=== PATIENT | male | born 1935 | race Caucasian/White ===

== ENCOUNTER 2019-06-10 08:51 | Outpatient (CLI) | payer MEDICARE, OTHER | END 2019-06-10 08:52 | disposition EMS.NT | LOC: EMS 08:51 | PROVIDERS: ATTEND Surgery | DX: R53.1 Weakness (principal) ==

== ENCOUNTER 2019-06-10 10:09 | Emergency (ER) | payer MEDICARE, OTHER ==
--- NOTE | 2019-06-10 10:56 | ED Physician Documentation ---
History of Present Illness - Stated complaint Stated Complaint: WEAKNESS - Chief complaint Chief Complaint: Neuro - History obtained from History obtained from: Patient (mostly non-verbal 2/2 dementia), Family - History of Present Illness Timing: Today Pain level max: 0 Pain level now: 0 - Additonal information Additional information: states that he appeared pale and weak. He had difficulty standing without his knees buckling. There were no focal neurological deficits. He was able to walk with her assistance from the bathroom to the bed where he laid down. EMS came and evaluated the patient. He was feeling better, so she brought him in for evaluation. She states he has had no fevers. No vomiting. No diarrhea. No constipation. Review of Systems Unable to obtain: Dementia Ten Systems: 10 systems reviewed and negative Constitutional: denies: Fever Nose: denies: Rhinorrhea / runny nose, Congestion Cardiac: denies: Chest pain / pressure Respiratory: denies: Cough GI: denies: Vomiting Skin: denies: Rash Musculoskeletal: denies: Neck pain, Back pain Neurologic: denies: Headache PD PAST MEDICAL HISTORY - Past Medical History Cardiovascular: Hypertension, High cholesterol Respiratory: None Neuro: Dementia Endocrine/Autoimmune: Type 2 diabetes GI: None : None HEENT: None Psych: None Musculoskeletal: Osteoarthritis Derm: None - Past Surgical History Past Surgical History: Yes HEENT: Cataracts - Present Medications Home Medications: Ambulatory Orders Medication Instructions Recorded Confirmed Lisinopril/Hydrochlorothiazide 1 mg PO DAILY 03/09/15 03/10/15 [Lisinopril-Hctz 20-12.5 mg Tab] Propranolol HCl 20 mg PO DAILY 03/09/15 03/10/15 Simvastatin 20 mg PO DAILY 03/09/15 03/10/15 metFORMIN [Glucophage] 500 mg PO DAILY 03/09/15 03/10/15 HYDROcod/ACETAM 5/325 [Anderson 5/325] 1 - 2 ea PO Q6H PRN #20 tablet 06/25/15 Cephalexin [Keflex] 500 mg PO Q6H #28 capsule 06/10/19 - Allergies Allergies/Adverse Reactions: Allergies Allergy/AdvReac Type Severity Reaction Status Date / Time No Known Drug Allergies Allergy Verified 03/10/15 06:32 - Social History Does the pt smoke?: Yes Smoking Status: Current every day smoker Does the pt drink ETOH?: No Does the pt have substance abuse?: No - Immunizations Immunizations are current?: Yes - POLST Patient has POLST: No PD ED PE NORMAL - Vitals Vital signs reviewed: Yes - General General: Alert and oriented X 3, No acute distress - HEENT HEENT: Moist mucous membranes - Neck Neck: Supple, no meningeal sign - Cardiac Cardiac: RRR, Strong equal pulses - Respiratory Respiratory: No respiratory distress, Clear bilaterally - Abdomen Abdomen: Soft, Non tender, Non distended - Derm Derm: Warm and dry - Neuro Neuro: Alert and oriented X 3, reverse unit operator 2-12 intact, No motor deficit, No sensory deficit, Normal speech Eye Opening: Spontaneous Motor: Obeys Commands Verbal: Oriented GCS Score: 15 - Psych Psych: Normal mood, Normal affect Results - Vitals Vitals: Oxygen O2 Source Room air - EKG (time done) 1114 Rate: Rate (enter#) (57) Rhythm: NSR Furlong: Normal Intervals: 1st degree AVB QRS: Normal Ischemia: Normal ST segments - Labs Labs: Laboratory Tests 06/10/19 06/10/19 06/10/19 10:41 10:41 10:41 WBC 6.5 RBC 3.77 L Hgb 12.4 L Hct 36.6 L MCV 97.1 H MCH 32.9 H MCHC 33.9 RDW 13.6 Plt Count 199 MPV 11.3 Neut # (Auto) 5.2 Lymph # (Auto) 0.9 L Mcintosh # (Auto) 0.4 Eos # (Auto) 0.0 Baso # (Auto) 0.0 Absolute Nucleated RBC 0.00 Nucleated RBC % 0.0 Sodium 139 Potassium 3.9 Chloride 104 Carbon Dioxide 27 Anion Gap 8.0 BUN 40 H Creatinine 1.1 Estimated GFR (MDRD) 64 L Glucose 158 H Calcium 9.1 Total Bilirubin 0.7 AST 14 ALT 15 Alkaline Phosphatase 50 Troponin I High Sens 6.3 Total Protein 7.4 Albumin 3.9 Globulin 3.5 Albumin/Globulin Ratio 1.1 Lipase 39 Urine Color Urine Clarity Urine pH Ur Specific [place] Urine Protein Urine Glucose (UA) Urine Ketones Urine Occult Blood Urine Nitrite Urine Bilirubin Urine Urobilinogen Ur Leukocyte Esterase Urine RBC Urine WBC Ur Squamous Epith Cells Urine Bacteria Ur Microscopic Review Urine Culture Comments 06/10/19 11:48 WBC RBC Hgb Hct MCV MCH MCHC RDW Plt Count MPV Neut # (Auto) Lymph # (Auto) Mcintosh # (Auto) Eos # (Auto) Baso # (Auto) Absolute Nucleated RBC Nucleated RBC % Sodium Potassium Chloride Carbon Dioxide Anion Gap BUN Creatinine Estimated GFR (MDRD) Glucose Calcium Total Bilirubin AST ALT Alkaline Phosphatase Troponin I High Sens Total Protein Albumin Globulin Albumin/Globulin Ratio Lipase Urine Color YELLOW Urine Clarity HAZY Urine pH 5.5 Ur Specific [place] 1.020 Urine Protein TRACE Urine Glucose (UA) NEGATIVE Urine Ketones NEGATIVE Urine Occult Blood MODERATE H Urine Nitrite NEGATIVE Urine Bilirubin NEGATIVE Urine Urobilinogen 0.2 (NORMAL) Ur Leukocyte Esterase NEGATIVE Urine RBC 11-25 H Urine WBC 4-5 Ur Squamous Epith Cells NONE SEEN Urine Bacteria Few Ur Microscopic Review INDICATED Urine Culture Comments NOT INDICATED - Rads (name of study) head CT Radiology: Prelim report reviewed, EMP read contemporaneously, See rad report (IMPRESSION: Normal for age. ) PD MEDICAL DECISION MAKING - ED course Complexity details: reviewed results, re-evaluated patient, considered differential, d/w patient, d/w family ED course: Patient presents to the emergency department what sounds like dehydration and possible near vasovagal syncope today. No focal neurological deficits. No evidence of stroke or TIA. He is at his normal baseline currently. Feels better after IV fluids. He is well-appearing, nontoxic. Afebrile. No chest pain. Patient and family counseled regarding signs and symptoms for which I believe and urgent re-evaluation would be necessary. Patient with good understanding of and agreement to plan and is comfortable going home at this [facility] This document was made in part using voice recognition software. While efforts are made to proofread this document, sound alike and grammatical errors may occur. We will treat for UTI as well Departure - Departure Disposition: 01 Home, Self Care Clinical Impression: Dehydration UTI (urinary tract infection) Qualifiers: Urinary tract infection type: acute cystitis Hematuria presence: without hematuria Qualified Code(s): N30.00 - Acute cystitis without hematuria Condition: Good Instructions: ED Dehydration, ED UTI Cystitis Male Follow-Up: Pavel Kearney MD [Primary Care Provider] - Within 1 week Prescriptions: Cephalexin [Keflex] 500 mg PO Q6H #28 capsule Comments: Drink plenty of fluid at home. Take all antibiotics until gone. Return if you worsen. Discharge Date/Time: 06/10/19 13:23 NIHSS - Time Time: 10:50 - Level of Consciousness Level of consciousness: (0) Alert, Keenly responsive LOC Questions: (2) Answers neither correct (dementia) LOC Commands: (0) Performs both correctly - Gaze Best Gaze: (0) Normal - Visual Visual: (0) No loss - Facial Palsy Facial Palsy: (0) Normal, symmetrical movement - Motor Arms (both separate) Motor Arm (right): (0) No drift Motor Arm (left): (0) No drift - Motor Legs (both separate) Motor Leg (right): (0) No drift Motor Leg (left): (0) No drift - Limb Ataxia Limb Ataxia: (0) Absent - Sensory Sensory: (0) Normal - Best Language Best Language: (0) No aphasia - Dysarthria Dysarthria: (0) Normal - Extinction and Inattention (formally neg Extinction and inattention: (0) No abnormality - Total Score/Results Total Score/Result: 2
[2019-06-10 11:02] LABS: BASOPHILS % (AUTO) 0.5 %; EOSINOPHILS % (AUTO) 0.6 %; HGB - HEMOGLOBIN 12.4 g/dL (14.0-18.0); LYMPHOCYTES # (AUTO) 0.9 10^3/uL (1.5-3.5); LYMPHOCYTES % (AUTO) 13.3 %; MEAN CORPUSCULAR HEMOGLOBIN 32.9 pg (27.0-31.0); MEAN CORPUSCULAR HGB CONC 33.9 g/dL (32.0-36.0); MEAN CORPUSCULAR VOLUME 97.1 fL (80.0-94.0); MEAN PLATELET VOLUME 11.3 fL (7.4-11.4); MONOCYTES # (AUTO) 0.4 10^3/uL (0.0-1.0); MONOCYTES % (AUTO) 5.4 %; NEUTROPHILS # (AUTO) 5.2 10^3/uL (1.5-6.6); NEUTROPHILS % (AUTO) 79.9 %; PLT - PLATELET COUNT 199 10^3/uL (130-450); RED BLOOD COUNT 3.77 10^6/uL (4.70-6.10); RED CELL DISTRIBUTION WIDTH 13.6 % (12.0-15.0); WHITE BLOOD COUNT 6.5 x10^3/uL (4.8-10.8)
[2019-06-10 11:13] LABS: ALBUMIN 3.9 g/dL (3.2-5.5); ALBUMIN/GLOBULIN RATIO 1.1 (1.0-2.2); BILIRUBIN,TOTAL 0.7 mg/dL (0.2-1.0); CALCIUM 9.1 mg/dL (8.5-10.3); CREATININE 1.1 mg/dL (0.6-1.2); TOTAL PROTEIN 7.4 g/dL (6.7-8.2)
[2019-06-10] MEDS ORDERED: SODIUM CHLORIDE 0.9% 1,000 ML IV ONE (11:46)
[2019-06-10 12:04] LABS: BILIRUBIN,URINE NEGATIVE (NEGATIVE); GLUCOSE, URINE (UA) NEGATIVE (NEGATIVE); KETONES,URINE (UA) NEGATIVE (NEGATIVE); LEUKOCYTE ESTERASE, URINE NEGATIVE (NEGATIVE); NITRITE,URINE NEGATIVE (NEGATIVE); OCCULT BLOOD,URINE MODERATE (NEGATIVE); PH,URINE 5.5 PH (5.0-7.5); PROTEIN,URINE TRACE mg/dL (NEGATIVE); UROBILINOGEN,URINE 0.2 (NORMAL) E.U./dL (NORMAL)
[2019-06-10 12:06] LABS: CLARITY,URINE HAZY (CLEAR)
[2019-06-10 12:16] LABS: BACTERIA,URINE Few /HPF (None Seen); SQUAMOUS EPITHELIAL CELL,UR NONE SEEN (<= Few)
--- NOTE | 2019-06-10 12:20 | CT Report ---
Reason: weakness Procedure Date: 06/10/2019 Accession Number: [id number] / [id number] Procedure: CT - HEAD WO CPT Code: Final Report FULL RESULT: EXAM: CT HEAD WITHOUT IV CONTRAST EXAM DATE: 06/10/2019. CLINICAL HISTORY: Weakness. Confusion. COMPARISON: MRI done 12/20/2015. TECHNIQUE: Multiaxial CT images were obtained from the foramen magnum to the vertex. Reformats: Sagittal and coronal. IV contrast: None. In accordance with CT protocol optimization, one or more of the following dose reduction techniques were utilized for this exam: automated exposure control, adjustment of mA and/or KV based on patient size, or use of iterative reconstructive technique. FINDINGS: Parenchyma: The ventricles and sulci are enlarged, within the broad range of normal for the age group. Decreased attenuation of the cerebral white matter is consistent with small vessel ischemic changes, common At this age. No intraparenchymal hemorrhage. No evidence of mass, midline shift, or CT findings of infarction. Everett-white differentiation is distinct. Extraaxial Spaces: No hemorrhage or mass demonstrated. Sinuses: The included sinuses are clear. Mastoids are normally aerated. Bones: No evidence of fracture or calvarial defect. Soft Tissues: Normal. IMPRESSION: Normal for age. RADIA
[2019-06-10 13:13] VITALS: BP 136/68
== END 2019-06-10 13:23 | disposition home or self-care (01) ==
LOC: ED 10:09
DX: E86.0 Dehydration (principal); N30.00 Acute cystitis without hematuria; I44.0 Atrioventricular block, first degree; I10 Essential (primary) hypertension; E11.9 Type 2 diabetes mellitus without complications; Z79.84 Long term (current) use of oral hypoglycemic drugs; F03.90 Unspecified dementia, unspecified severity, without behavioral disturbance, psychotic disturbance, mood disturbance, and anxiety; F17.200 Nicotine dependence, unspecified, uncomplicated
CPT/HCPCS: 36415; 51701; 70450; 80053; 81001; 81003; 83690; 84484; 85025; 87086; 93005; 96360; 99283

== ENCOUNTER 2019-07-30 11:00 | Outpatient (CLI) | payer MEDICARE, OTHER ==
--- NOTE | 2019-07-30 17:38 | CONSULTATION NOTE ---
Palliative Care Consultation - Referral Referring Provider: Dr. Pavel Kearney Time of Visit: [id number] Referral setting: Home Referral Reason: Lewy Body Dementia - Information Sources Records reviewed: Previous records reviewed History/Review of Systems obtained from: Family (, Angélica) Exam limitations: Clinical condition (poor historian due to dementia and is mostly nonverbal) - History of Present Illness Brief History of Present Illness: This is a 83-year-old male who presents today in his home with his spouse, Angélica present, and MARILU Abel for initial palliative care consultation due to patient's progressive Lewy body dementia. Patient was diagnosed with Lewy body dementia at approximately age 78. He has been followed by Dr. Hopkins, at the [facility], and his medications related to his dementia were stopped by the neurologist as this was not providing any benefit. The medications were stopped in approximately April 2019. His reports that she did not notice any change in his cognition with, and then without, the medication. Earlier in the patient's disease course he did have visual hallucinations but does not any longer. His , Angélica, reports that since February of last year she is noted more changes in regards to the patient's progressive dementia. He has not had any weight los s that she can report since the summer. He continues to eat well. He did have a loss of weight from August to December 2018. He is requiring assistance during meals with prompting and will also take him quite some time to complete a meal. The latest symptoms that she has encountered is that he is sleeping more throughout the day. Once though patient's has prepared him for bed, he will stay in bed for the night. An additional troubling concern for her is his urinary incontinence. He had a syncopal episode in May 2019 and was transported and EMS was called and the patient was taken to the [facility] emergency department where he was diagnosed with dehydration and a urinary tract infection. His reports that at times his urine will have a foul odor to it. She attempts to to prompt him to drink fluids such as water and cranberry juice throughout the day. She denies any recent fever or change in urinary pattern. He is still able to ambulate independently without any assistive device. He will walk up and down the stairs to their bedroom typically, without incident. Per the there are approximately 16 steps. He has had 2 falls in the last 12 months without reported injury. Medical/Surgical History - Past Medical History Cardiovascular: reports: Hypertension, High cholesterol Respiratory: reports: None Neuro: Dementia (Lewy Body Dementia) Endocrine/Autoimmune: reports: Type 2 diabetes GI: reports: None : reports: None HEENT: reports: None Psych: reports: None Derm: reports: None MRSA Hx?: No Other Past Medical History: Macular Degeneration; Actinic Keratosis to left nare - Past Surgical History HEENT: reports: Cataracts - Substance History Use: Uses substance without health or social issues: Other (Previous hisory of tobacco use with cigarrettes and cigars) Social History - Living Situation Living arrangement: At home Living Situation: With spouse/s.o. ( Angélica who is his long term care administrator) Support System: The patient was previously and has 1 daughter from that relationship. He has been to his current , Angélica, for 30 years. Angélica has daughters from her previous marriage. 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 When he became aware that his cognition was starting to decline he retired at age 79. There is no family that lives locally. Geraldine is his primary caregiver. He has a director of intercollegiate athletics, Brenden, who takes him out on Tuesdays and for approximately 3 to 4 hours for socialization and to attend the coffee shop. Prior to his decline due to his Lewy body dementia, he was very active in his community. His recalls him as being "life of the republican" and was president of the men's club. He was also an avid golfer. They do have a neighbor, Tiffanie, who comes to assist Angélica when she goes to her [employer] class or has to run errands such as grocery shopping in town. Family History - Family History Family History: Mother: , Father: , Sister: Alive and Well Family History Comment/Other: No family history of dementia. Medications/Allergies - Medications Home Medications: Ambulatory Orders Medication Instructions Recorded Confirmed Propranolol HCl 20 mg PO DAILY 03/09/15 07/30/19 metFORMIN [Glucophage] 500 mg PO DAILY 03/09/15 07/30/19 - Allergies Allergies/Adverse Reactions: Allergies Allergy/AdvReac Type Severity Reaction Status Date / Time No Known Drug Allergies Allergy Verified 07/30/19 18:07 Review of Systems - Constitutional Constitutional: reports: Weight loss (weight loss from Aug to December 2018). denies: Fever, Chills - Eyes Eyes: reports: Other (+macular degeneration and recieves injections routinely) - Ears, Nose & Throat Ears, Nose & Throat: reports: Nasal discharge (recent nasal discharge that resolved with the use of D-HIST supplement daily) - Cardiovascular Cardiovascular: reports: Syncope (syncopal epsisode May 2019 with dx of dehydration and UTI). denies: Edema - Respiratory Respiratory: denies: Cough, Wheezing, SOB at rest - Gastrointestinal Gastrointestinal: denies: Abdominal distention, Constipation, Nausea, Vomiting, Poor appetite - Genitourinary Genitourinary: reports: Incontinence, Other (strong odor to urine) - Musculoskeletal Musculoskeletal: denies: Joint swelling, Assistive devices - Integumentary Integumentary: reports: Other (lesion noted to right scalp) - Neurological Neurological: reports: Memory problems (Lewy Body Dementia) - Psychiatric Psychiatric: denies: Behavior disturbances - Endocrine Endocrine: reports: Diabetes type 2 - Hematologic/Lymphatic Hematologic/Lymphatic: denies: Bruising - All Other Systems All Other Systems: reports: Reviewed and negative - Other Findings Other Findings: ROS obtained from spouse, Angélica, as patient is a poor historian and mostly non- verbal due to dementia Physical Exam - Vital Signs Temperature: 36.2 C (temporal) Pulse Rate: 86 O2 Saturation: 95 (on RA) Blood Pressure: 108/62 - Physical Exam General Appearance: positive: No acute distress (Seen in his kitchen and during initial period of the visit was dozing in his chair in the kitchen. Well groomed. Made eye contact.) Eyes Bilateral: positive: Normal inspection ENT: positive: Other (MMM) Neck: positive: Trachea midline, Other (no LAD) Cardiovascular: positive: Regular rate & rhythm, No murmur. negative: Decreased pulse(s) Respiratory: positive: No respiratory distress, Breath sounds nml. negative: Wheezes, Rhonchi Abdomen: positive: Non-tender, Soft, Nml bowel sounds. negative: Tenderness, Distended Skin: positive: Other (Light brown patch to right mosque along scalp without evidence of skin breakdown or irritation) Extremities: positive: Full ROM, Other (MAC circumference RUE 27.5cm). negative: No pedal edema Neurologic/Psychiatric: positive: Disoriented to person, Disoriented to place, Disoriented to time, Other (smiles easily and answers with one to two words responses to questions; pleasantly confused) Palliative Care - POLST Patient has POLST: Yes POLST Status: Selective Treatment, Full Code Pain: No pain Drowsiness/Sedation: Moderate (4-6) Nausea: None Anorexia: None Dyspnea: None Depression: None Sleep: Sleeps well ( reports that she sometimes have difficulty undressing the patient in the evenings a he wishes to hold onto his clothes) Constipation: No Performance Status: Patient was previously very active in his job as well as his community. Since his diagnosis of Lewy body dementia he has had a progressive decline with an steady increase in his functional decline since the summer. He requires complete assistance with dressing and bathing. Formally, he would allow his to bathe him in the shower. Now he no longer wishes to enter the shower and she is bathing him with rinse less wipes. He is completely incontinent of bowel and bladder and his has been providing perineum care without any evidence of skin breakdown. He continues to have a good appetite, however, he requires prompting when he feeds himself and of late is being fed. He continues to ambulate without an assistive device however he has had 2 falls without injury in the last 12 months. PPS score 40% - Palliative Care Discussion: Discussion of goals of care was held with his /DPOA, Angélica. We discussed the disease trajectory with Lewy Body Dementia and that the patient's dementia has progressed to a severe state that he is requiring assistance with all his ADLs. Angélica is able to provide all his needs as his caregiver presently, but recognizes that the time to require assistance in the home is approaching due to overall decline in functional status that has been increasingly progressive in the last few months. At this time, Angélica does not present with caregiver fatigue as she is able to attend pilates several times a week and her neighbor, Tiffanie will attend to the patient while she is away from the home. There is also, Brenden, who takes the patient out twice a week for 3-4 hours for coffee and social interation outside of the home. Angélica is in contact with the patient's daughter as well as her own daughters who provide emotional support. Her father was on hospice services and she cared for both her mother and father prior to their deaths. The present POLST was reviewed and the patient was elected as a Full Code with selective treatment. Upon further review of goals of care, Angélica wishes to focus on comfort and quality of life for her within their home without comfort measures with a transition to hospice when appropriate. Hospice services where reviewed with the patient's /DPOA. Impression and Recommendations - Palliative Care Impression: This is an 83-year-old man who presents with advanced Lewy body dementia with increasingly progressive functional decline. Patient would benefit from continued palliative support for symptom management, anticipatory guidance, and transition to hospice when appropriate. Recommendations/Counseling Done: 1. Lewy Body Dementia. Advanced. PPS score 40% and dependent on all ADLs with incontinence of bowel and bladder. Progressive functional decline. Reviewed trajectory of disease course with /DPOA with questions answered and addressed. Has been followed by Dr. Hopkins at [facility] for neurology services. As his previous medications for his condition were discontinued due to ineffectiveness would not continue with appointments given the patient's functional decline as this would be taxing not only to him but also to his . His is in agreement. No evidence of aspiration per report. Fall precautions. Anticipatory guidance provided as well as provided a list of caregiving agencies on [facility] for the /DPOA to contact to assist with caregiving needs within the home. 2. Hypertension. Two recent episodes of syncope per 's report in context of concentrated urine and decreased fluid intake secondary to dementia. Presently on Lisinopril/HCTZ and propanol. Given he has no peripheral edema and limited fluid intake, discussed with /DPOA discontinuing lisinopril/HCTZ and in agreement. Continue propanol as ordered. No reported cardiac awareness. Continue to monitor and adjust antihypertensive medication regimen as necessary. 3. History of UTI. Presently afebrile and without any s/s of infection. Encouraged frequent oral hydration throughout the day. 4.Macular degeneration. Followed by Dr. Timmons for monthly injections. As the patient has limited vision, reviewed benefits vs burdens regarding continuation of these injections with his /DPOA. At the present time, we will continue the injections as it affords the patient to maintain his present eyesight for quality of life purposes. 5. Advanced care planning. Goals of care reviewed with /DPOA, Angélica who wishes to focus on comfort and quality of life with a transition to hospice when appropriate. Reviewed POLST and updated to reflect goals of care as DNR and comfort measures. Counseling provided to regarding palliative versus hospice care and the expected transition points in the patient's disease trajectory that would lead to a hospice referral with questions answered and addressed. Time Spent: Total time spent 75 minutes with greater than 50% of time spent in counseling family and patient regarding escalation vs de-escalation of care, palliative/hospice philosophy as well as care coordination, caregiver support, disease trajectory for advanced Lewy Body Dementia and anticipatory guidance. Follow-up in 3 weeks or sooner if new/worsening symptoms. Disclaimer: The chart note was formulated using voice recognition technology and unfortunately sounds like errors are possible.
== END 2019-07-30 11:01 | disposition home or self-care (01) ==
LOC: PC 11:00
PROVIDERS: ATTEND Nurse Practitioner Family
DX: Z51.5 Encounter for palliative care (principal); G31.83 Neurocognitive disorder with Lewy bodies; F02.80 Dementia in other diseases classified elsewhere, unspecified severity, without behavioral disturbance, psychotic disturbance, mood disturbance, and anxiety; I10 Essential (primary) hypertension; H35.30 Unspecified macular degeneration; Z79.899 Other long term (current) drug therapy; Z87.440 Personal history of urinary (tract) infections
CPT/HCPCS: 99345

== ENCOUNTER 2019-08-21 12:30 | Outpatient (CLI) | payer MEDICARE, OTHER ==
--- NOTE | 2019-08-21 16:53 | CONSULTATION NOTE ---
Palliative Care Follow Up - Referral Referring Provider: Dr. Pavel Kearney Time of Visit: [id number] Referral setting: Home Referral Reason: Lewy Body Dementia - Information Sources Records reviewed: Previous records reviewed History/Review of Systems obtained from: Family (spouse and caregiver, Angélica) Exam limitations: Clinical condition (Minimally verbal and not contributory) - History of Present Illness Update Brief HPI Update: This is an 83-year-old man who is seen in the presence of his spouse, Kim, for follow-up due to progressive Lewy body dementia. He was first diagnosed with Lewy body dementia at approximately age 78. He had been followed by Dr. Chowdhury, at the [facility], and his medications related to his dementia were stopped by the neurologist as there was no noted benefit. These medications were stopped in approximately April 2019. He presently has had more of a gradual decline since his last evaluation 3 weeks ago. His , Angélica and sole caregiver reports that "every day is different." In the last several weeks she has noticed that he appears to have lost more weight although no weight has been able to be obtained. He has lost the ability to adequately follow commands when addressed. He remains minimally verbal. During the day he will chew on playing cards and will move objects that have been left on the table and pick them up. He continues to go out approximately twice a week with a male substation operator apprentice, Brenden, who takes him out for socialization and to attend a coffee shop. He has also lost some interest in food but continues to eat most of his meals but it may take up to 1 hour at a time for completing it. He typically stays at the kitchen table most of the day drifting in and out of sleep. He typically will get approximately 10 to 12 hours of sleep during the night. He does not get up during the night. His is also noticed some decrease in balance with a recent fall into a chair with no noted injury. Otherwise he is still able to ambulate independently without an assistive device. He also remains able to walk up and down the stairs to their shared bedroom, typically without incident. On his last evaluation on July 30, 2019 the patient's lisinopril/HCTZ was discontinued due to decreased oral intake as well as reported episodes of syncope. He has had no further episodes of syncope after this discontinuation. The reports that they went to the manufacturer representative 1 Sunday for injections regarding his macular degeneration. However the patient was unable to follow commands and moving forward they are no longer going to have any intraocular injections. During that visit it was reported to the that his systolic blood pressure was approximately 75. Social History - Living Situation Living arrangement: At home Living Situation: With spouse/s.o. Support System: The patient remains to be cared for by his , Angélica. They have been for approximately 30 years. The patient has a daughter, Nayely, from his previous marriage. The daughter, granddaughters, visited recently and they enjoyed their visit. They next plan on visiting while the granddaughters are on spring break. Angélica continues to attend Pilates class routinely to maintain her core strength. She continues to to maintain her ability to care for the patient independently. She is aware that she will eventually need increased assistance. While Angélica attends Pilates class or has to run errands, there is a neighbor, Tiffanie who was able to remain with the patient so he is not alone. Medications/Allergies - Medications Home Medications: Ambulatory Orders Medication Instructions Recorded Confirmed Propranolol HCl 20 mg PO DAILY 03/09/15 07/30/19 metFORMIN [Glucophage] 500 mg PO DAILY 03/09/15 07/30/19 Dhist 2 cap PO DAILY 08/21/19 - Allergies Allergies/Adverse Reactions: Allergies Allergy/AdvReac Type Severity Reaction Status Date / Time No Known Drug Allergies Allergy Verified 07/30/19 18:07 Review of Systems - Constitutional Constitutional: reports: Fatigue, Weakness, Weight loss (RUE MAC circumference 27.5cm on 07/30/2019). denies: Fever - Eyes Eyes: reports: Vision loss (secondary to macular degeneration) - Ears, Nose & Throat Ears, Nose & Throat: denies: Nasal discharge - Cardiovascular Cardiovascular: denies: Chest pain, Edema, Syncope - Respiratory Respiratory: denies: Cough, Wheezing - Gastrointestinal Gastrointestinal: reports: Other (+incontinent of stool). denies: Abdominal pain, Constipation (typically will have appx 2-3 bowel movements every other day), Diarrhea, Vomiting - Genitourinary Genitourinary: reports: Incontinence - Musculoskeletal Musculoskeletal: reports: Muscle weakness. denies: Joint pain, Joint swelling, Assistive devices - Integumentary Integumentary: reports: Other (lesion to right confucianism along scalp has resolved) - Neurological Neurological: reports: General weakness, Memory problems - Psychiatric Psychiatric: denies: Behavior disturbances - Endocrine Endocrine: reports: Diabetes type 2 - Hematologic/Lymphatic Hematologic/Lymphatic: reports: Bruising - All Other Systems All Other Systems: reports: Other (ROS obtained from spouse, Angélica as patient is a poor historian due to dementia and is mostly nonverbal.) Physical Exam - Vital Signs Temperature: 36.2 C Pulse Rate: 70 O2 Saturation: 98 (on RA) Blood Pressure: 130/60 (right wrist cuff) - Physical Exam General Appearance: positive: No acute distress, Other (sleeping in chair in living room, arousable and made good eye contact, well groomed.) Eyes Bilateral: positive: Normal inspection ENT: positive: Other (+MMM) Neck: positive: No JVD, Trachea midline Cardiovascular: positive: Regular rate & rhythm, No murmur, No gallop. negative: Decreased pulse(s) Respiratory: positive: No respiratory distress, Breath sounds nml. negative: Rhonchi Abdomen: positive: Non-tender, Soft, Nml bowel sounds. negative: Distended Skin: positive: Bruising (noted to bilateral hands) Extremities: positive: Non-tender, No pedal edema, Other (MAC RUE circumference 27cm) Neurologic/Psychiatric: positive: Disoriented to person, Disoriented to place, Disoriented to time, Weakness, Other (Only will speak 3 words (sure, yes, bye) and will whistle. Is unable to follow commands when requested to raise legs or squeeze examiner's hands) Palliative Care - POLST Patient has POLST: Yes POLST Status: DNR, Comfort Measures Pain: No pain Tiredness/Fatigue: Moderate (4-6) (dozes on and off throughout the day) Sleep: Sleeps well Constipation: No Performance Status: Patient continues to have a physical and cognitive decline related to his Lewy body dementia. He continues to have a loss of functional decline more specifically of late regular in regards to his inability to follow commands. He requires complete assistance with hygiene. He is incontinent of bowel and bladder. He continues to have a good appetite but it can take approximately 1 hour for him to consume a meal. No noted coughing or choking when eating. He continues to ambulate without an assistive device, however, his has noticed some increased and loss of his balance. FAST 7B - Palliative Care Discussion: Patient is dozing off more frequently during the day, has had noted weight loss in regards to his MAC score to his right upper extremity from 27.5cm to 27 cm in the span of approximately 3 weeks. His can tell that he continues to have a functional decline however he does not appear to be uncomfortable. His wishes to focus on comfort and quality of life and for the patient to remain in their home with a transition to hospice when appropriate. Impression and Recommendations - Palliative Care Impression: This is an 83-year-old man who presents with advanced Lewy body dementia with an increasingly progressive functional decline.Patient would continue to benefit from palliative support for symptom management, anticipatory guidance, and transition to hospice when appropriate. Recommendations/Counseling Done: 1. Lewy Body Dementia. Advance. Chronic. Progressive. Fast 7B. Patient remains dependent on all ADLs with incontinence of bowel bladder. Fall precautions. No evidence of aspiration during meals. Presently the feels that she is able to handle caregiving independently and has not requested any assistance from an agency. Reviewed trajectory that patient is on the cusp of being hospice appropriate. Reviewed hospice criteria in regards to dementia with the with questions and answers addressed. Reviewed may obtain a hospital bed when needed in the future from [facility]. 2. HTN. No evidence of hypotension. No recurrent episodes of syncope per 's report. Continue propanolol as ordered. Continue to monitor and adjust antihypertensive medication regimen as necessary. 3. History of frequent UTIs. Continue to encourage frequent oral hydration th roughout the day. May continue daily glass of cranberry juice. 4. Macular degeneration. Monthly injections have been discontinued by the manufacturer representative due to patient's inability to follow commands. 5. Advanced care planning. POLST DNAR with comfort measures in place and in the home. /DPOA wishes to focus on comfort and quality of life with transition to hospice services when appropriate. Time Spent: Total time spent 45 minutes with greater than 50% of this spent in counseling and coordination of care with /DPOA, review of hospice criteria, examination of the patient, additional care resources, review of symptom management and anticipatory guidance. F/u in 3 weeks or sooner if new/worsening symptoms. Disclaimer: The chart note was formulated using voice recognition technology and unfortunately sound alike errors may occur.
== END 2019-08-21 12:31 | disposition home or self-care (01) ==
LOC: PC 12:30
PROVIDERS: ATTEND Nurse Practitioner Family
DX: Z51.5 Encounter for palliative care (principal); G31.83 Neurocognitive disorder with Lewy bodies; F02.80 Dementia in other diseases classified elsewhere, unspecified severity, without behavioral disturbance, psychotic disturbance, mood disturbance, and anxiety; R15.9 Full incontinence of feces; R32 Unspecified urinary incontinence; E11.9 Type 2 diabetes mellitus without complications; H35.30 Unspecified macular degeneration; I10 Essential (primary) hypertension; R26.81 Unsteadiness on feet; R53.83 Other fatigue; R53.1 Weakness; Z91.81 History of falling; Z87.440 Personal history of urinary (tract) infections; Z79.84 Long term (current) use of oral hypoglycemic drugs; Z66 Do not resuscitate
CPT/HCPCS: 99349